=== PATIENT | female | born 1970 | race Caucasian/White ===

== ENCOUNTER 2016-05-02 06:40 | Inpatient (IN) | payer MEDICAID ==
[2016-05-02 06:41] VITALS: BMI 20.8
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
[2016-05-02 11:29] LABS: BASO # 0.1 K/uL (0.0-0.2); BASO % 0.6 % (0.0-2.0); EOS % 0.1 % (0.0-4.0); HEMATOCRIT 40.5 % (34.0-47.0); LYMPH # 2.8 K/uL (1.0-4.3); LYMPH % 24.1 % (20.0-40.0); MEAN CORPUSCULAR HEMOGLOBIN 29.7 pg (27.0-31.0); MEAN CORPUSCULAR HGB CONC 33.1 g/dL (33.0-37.0); MEAN PLATELET VOLUME 7.3 fl (7.2-11.7); MONO # 0.9 K/uL (0.0-0.8); MONO % 7.5 % (0.0-10.0); NEUT # 7.8 K/uL (1.8-7.0); NEUT % 67.7 % (50.0-75.0); RED CELL DISTRIBUTION WIDTH 13.3 % (11.5-14.5); WHITE BLOOD COUNT 11.5 K/uL (4.8-10.8)
[2016-05-02 11:34] LABS: MEAN CELL VOLUME 89.7 fl (81.0-99.0)
[2016-05-02 11:45] LABS: ALCOHOL SERUM < 10 mg/dl (0-10); BLOOD UREA NITROGEN 10 mg/dl (7-17); CALCIUM 9.4 mg/dL (8.4-10.2); CARBON DIOXIDE 26 mmol/L (22-30); CHLORIDE 103 mmol/L (98-107); GFR AFRICAN-AMERICAN > 60; GLUCOSE,RANDOM 99 mg/dL (65-105); POTASSIUM 3.2 MMOL/L (3.6-5.0); SODIUM 136 mmol/l (132-148)
[2016-05-02] MEDS ORDERED: Potassium Chloride 20 mEq ER Tab PO ONE ×2 (12:07→12:21)
[2016-05-02] MEDS ORDERED: DiphenhydrAMINE 50 mg/ml Inj IM PRN (20:57)
[2016-05-02] MEDS ORDERED: Alum-Mag Hydrox-Simethicone Susp (30 mL) PO PRN (20:57)
[2016-05-02] MEDS ORDERED: Magnesium Hydroxide Susp 30 ml UD PO PRN (20:57)
--- NOTE | 2016-05-03 08:04 | CARD ---
APPROVED REPORT EKG Measurement Heart [id number] <Conclusion> Normal sinus rhythm with sinus arrhythmia Prolonged QT Abnormal ECG
[2016-05-03 08:16] LABS: T4 9.42 ug/dl (5.5-11.0)
[2016-05-03 08:29] LABS: THYROID STIMULATING HORMONE 0.5 mIU/ML (0.46-4.68)
--- NOTE | 2016-05-03 10:02 | CP.PCM.CON ---
History of Present Illness - History of Present Illness History of Present Illness: Reason for Consult: per protocol HPI: 46 year old female with no past medical history, admitted for likely aggressive behavior. Patient seems very angry and is minimally compliant with interview. Does not have any complaints at this time. Per chart review, patient was admitted for schizoaffective disorder, bizarre behavior, and paranoid thoughts. ROS: per HPI, all other systems reviewed and negative by me PMH: denies PSH: denies FH: denies SH: Denies tobacco, ETOH, IVDU MEDS: as below and reviewed ALLERGIES: NKDA EXAM: Vitals stable and reviewed patient refused physical exam LABS as below and reviewed ASSESSMENT AND PLAN: 46 year old female with no past medical history, admitted for likely aggressive behavior. Patient seems very angry and is minimally compliant with interview. Does not have any complaints at this time. Per chart review, patient was admitted for schizoaffective disorder, bizarre behavior, and paranoid thoughts. Schizoaffective Disorder management per psychiatry team Past Patient History - Infectious Disease Hx of Infectious Diseases: None - Past Medical History & Family History Past Medical History?: Yes - Past Social History Smoking Status: Unknown If Ever Smoked - CARDIAC Hx Cardiac Disorders: No - PULMONARY Hx Asthma: Yes Hx Tuberculosis: No - NEUROLOGICAL Hx Neurological Disorder: No HX Cerebrovascular Accident: No Hx Seizures: No - HEENT Hx HEENT Problems: No - RENAL Hx Chronic Kidney Disease: No - ENDOCRINE/METABOLIC Hx Endocrine Disorders: No - HEMATOLOGICAL/ONCOLOGICAL Hx Blood Disorders: No Hx Cancer: No Hx Human Immunodeficiency Virus (HIV): No - INTEGUMENTARY Hx Dermatological Problems: No - MUSCULOSKELETAL/RHEUMATOLOGICAL Hx Musculoskeletal Disorders: No Hx Falls: No Hx Unsteady Gait: No - GASTROINTESTINAL Hx Gastrointestinal Disorders: No - GENITOURINARY/GYNECOLOGICAL Hx Genitourinary Disorders: No Hx Sexually Transmitted Disorders: No - PSYCHIATRIC Hx Sexual Abuse: No Hx Substance Use: No - SURGICAL HISTORY Hx Surgeries: Yes Hx Hysterectomy: Yes Hx Tubal Ligation: Yes - ANESTHESIA Hx Anesthesia: Yes Meds Allergies/Adverse Reactions: Allergies Allergy/AdvReac Type Severity Reaction Status Date / Time No Known Allergies Allergy Verified 07/15/15 13:29 - Medications Medications: Current Medications Acetaminophen (Tylenol 325mg Tab) 650 mg PO Q4 PRN PRN Reason: Pain, moderate (4-7) Al Hydrox/Mg Hydrox/Simethicone (Maalox Plus 30 Ml) 30 ml PO Q4 PRN PRN Reason: Dyspepsia Diphenhydramine HCl (Benadryl) 50 mg PO HS PRN PRN Reason: Sleep Diphenhydramine HCl (Benadryl) 50 mg IM Q6 PRN PRN Reason: Extrapyramidal S/S Unable PO Haloperidol (Haldol) 5 mg PO Q4 PRN PRN Reason: Agitation Haloperidol Lactate (Haldol) 5 mg IM Q4 PRN PRN Reason: Agitation, Unable to Take PO Lorazepam (Ativan) 2 mg PO Q4 PRN PRN Reason: Anxiety/Agitation Lorazepam (Ativan) 2 mg IM Q4 PRN PRN Reason: Anxiety/Agitation,Unable PO Magnesium Hydroxide (Milk Of Magnesia) 30 ml PO HS PRN PRN Reason: Constipation Risperidone (Risperdal M-Tab) 1 mg PO DAILY MICHELLE Results - Vital Signs Recent Vital Signs: Last Vital Signs Temp 98.1 F 05/02/16 19:44 Pulse 68 05/02/16 19:44 Resp 22 05/02/16 19:44 BP 101/60 05/02/16 19:44 Pulse Ox 100 05/02/16 18:00 - Labs Result Diagrams: 05/02/16 11:23 05/02/16 11:23 Labs: Laboratory Results - last 24 hr 05/03/16 06:30 Triglycerides 70 Cholesterol 202 H LDL Cholesterol Direct 95 HDL Cholesterol 77 H Thyroxine (T4) 9.42 TSH 3rd Generation 0.50
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
[2016-05-03] MEDS: Risperidone M tab 1 MG PO SCH (15:03)
[2016-05-04] MEDS: Risperidone M tab 1 MG PO SCH ×2 (08:55→09:01)
[2016-05-04 09:15] VITALS: BP 104/79; PULSE 120; RESP 20; TEMP 97.5
[2016-05-04 09:42] VITALS: O2SAT 99
[2016-05-04 14:16] LABS: BLOOD UREA NITROGEN 12 mg/dl (7-17); CALCIUM 9.4 mg/dL (8.4-10.2); CARBON DIOXIDE 24 mmol/L (22-30); CHLORIDE 103 mmol/L (98-107); GFR AFRICAN-AMERICAN > 60; GLUCOSE,RANDOM 118 mg/dL (65-105); POTASSIUM 4.2 MMOL/L (3.6-5.0); SODIUM 142 mmol/l (132-148)
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
--- NOTE | 2016-05-04 20:11 | PCM.PYCHPN ---
Psychiatric Progress Note - Psychiatric Progress Note Patient seen today, length of contact: chart was reviewed and case was discussed with team Patient Chief Complaint: was doing the work of Cornel, people dont understand, they were trying to rolled ham lacer me, reports that i dont know why i am here but cornel sent me, staff report that pt at times was making attempts to elope as such she was placed on 1 to 1. staff report pt is religiously preoccupied and is isolative in room. pt was seen by rn intake to day and there were concerns about potassium levels and ekg rhythm. rn intake requested that pt be transferred to er for evaluation. prior to transfer pt was agreeable to have echocardiogram, verbalized would not make attempt to run or elope . pt denied chest sob or palpitations Problems Identified/Issues Discussed: alteration in thought process alteration in self care potential alteration in safety alteration in electrolyte status alteration in cardiac rhythm Medical Problems: per chart Diagnostic Results: per psychiatric per medicine per nursing per director social per recreational therapy DSM 5 Symptoms Update: paranoia denominational pre occupation Medication Change: No Medical Record Reviewed: Yes Consults ordered or reviewed: cardiology Mental Status Examination - Cognitive Function Orientation: Person, Place Memory: Impaired Attention: Poor Concentration: Poor Association: Loose Fund of Knowledge: Poor Decription of patient's judgement and insights: impaired - Mood Mood: Other (angry) - Affect Affect: Broad - Speech Speech: Soft Additional comments: under productive - Formal Thought Process Formal Thought Process: Hallucinations, Delusions, Paranoia, Loosening of associations, Flight of ideas Psychotic Thoughts and Behaviors: paranoia - Suicidal Ideation Suicidal Ideation: No - Homicidal Ideation Homicidal Ideation: No Goal/Treatment Plan - Goal/Treatment Plan Need for Continued Stay: Remain at risks for inpatient hospitalization, Discharge may exacerbated symptoms, Failed transitioning, Severe functional impairment Progress Toward Problem(s) and Goals/Treatment Plan: pt to be transferred to er for evaluation by rn intake pt off of unit via wheelchair with one to one for echocardiogram then to be transferred to er primary nursing staff endorced pt to er medications for psychiatry will remain the same unless clinically indicated for change if pt is to be transferred from er to medsurg or telemetry pt will be seen by psych once consulted pt off of unit without incident If changed, why: pt transferred to er for evaluation of K+/ekg rhythm - Smoking Cessation Smoking Cessation Initiated: No Reason for not providing: pt deferred
--- NOTE | 2016-05-05 07:57 | CARD ---
APPROVED REPORT EXAM: Two-dimensional and M-mode echocardiogram with Doppler and color Doppler. Other Information Quality : GoodRhythm : Tachycardia INDICATION Abnormal EKG/Arrhythmia 2D DIMENSIONS RVDd2.45 (2.9-3.5cm)Left Atrium (2D)1.97 (1.6-4.0cm) IVSd0.94 (0.7-1.1cm)Aortic Root (2D)2.77 (2.0-3.7cm) LVDd3.85 (3.9-5.9cm)PWd0.81 (0.7-1.1cm) IVSs1.37 (0.8-1.2cm)LVDs2.67 (2.5-4.0cm) FS (%) 30.5 %PWs0.95 (0.8-1.2cm) LVEF (%)58.0 (>50%) M-Mode DIMENSIONS Left Atrium (MM)2.56 (2.5-4.0cm)IVSd0.68 (0.7-1.1cm) Aortic Root2.47 (2.2-3.7cm)LVDd3.53 (4.0-5.6cm) Aortic Cusp Exc.1.91 (1.5-2.0cm)PWd0.68 (0.7-1.1cm) MV EPSS0.2 (<0.5cm)IVSs1.24 cm FS (%) 56 %LVDs1.56 (2.0-3.8cm) PWs1.15 cmLVEF (%)75 (>50%) Mitral Valve E/A ratio0.0 TDI Medial E' Peak V9.13cm/sE/Lateral E'0.0E/Medial E'0.0 LEFT VENTRICLE The left ventricle is normal size. There is normal left ventricular wall thickness. Left ventricle systolic function is normal. The Ejection Fraction is 65-70%. There is normal LV segmental wall motion. Transmitral Doppler flow pattern is Grade I-abnormal relaxation pattern. RIGHT VENTRICLE The right ventricle is normal size. There is normal right ventricular wall thickness. The right ventricular systolic function is normal. ATRIA The left atrium size is normal. The right atrium size is normal. AORTIC VALVE The aortic valve is normal in structure and function. No aortic regurgitation is present. There is no aortic valvular stenosis. MITRAL VALVE The mitral valve is normal in structure and function. There is no evidence of mitral valve prolapse. There is no mitral valve stenosis. There is no mitral valve regurgitation noted. TRICUSPID VALVE The tricuspid valve is normal in structure and function. There is no tricuspid valve regurgitation noted. PULMONIC VALVE The pulmonary valve is normal in structure and function. There is no pulmonic valvular regurgitation. GREAT VESSELS The aortic root is normal in size. The IVC is normal in size and collapses >50% with inspiration. PERICARDIAL EFFUSION The pericardium appears normal. <Conclusion> The left ventricle is normal size. There is normal left ventricular wall thickness. There is normal LV segmental wall motion. Left ventricle systolic function is normal. The Ejection Fraction is 65-70%. Transmitral Doppler flow pattern is Grade I-abnormal relaxation pattern.
== END 2016-05-04 16:00 | disposition short-term general hospital (02) | DRG 430 ==
LOC: H.ER 06:40 → H.ERHOLD 12:40 → H.PSYCH 19:41
PROVIDERS: ADMIT Psychiatry & Neurology Psychiatry; ATTEND Psychiatry & Neurology Psychiatry
PROC: GZ51ZZZ Individual Psychotherapy, Behavioral (ICD-10-PCS; principal; 2016-05-02)
DX: F25.9 Schizoaffective disorder, unspecified (principal); E87.6 Hypokalemia; J45.909 Unspecified asthma, uncomplicated; Z90.710 Acquired absence of both cervix and uterus; Z98.51 Tubal ligation status

== ENCOUNTER 2016-05-04 14:42 | Observation (INO) | payer MEDICAID ==
[2016-05-04 14:42] VITALS: BMI 20.8
--- NOTE | 2016-05-04 15:07 | CP.PCM.HP ---
History of Present Illness - History of Present Illness History of Present Illness: CC: transferred from [facility] / cardiology recommendation HPI: 46 year old female with no past medical history, admitted to [facility] a few days ago for likely aggressive behavior. Per chart review, patient was admitted for schizoaffective disorder, bizarre behavior, and paranoid thoughts. During evaluation in psych, patient was seen by cardiology, was hypokalemic 2 days ago and EKG showed QT prolongation. ECHO was ordered. Patient to be d/c to ER for admission for observation on telemetry, to monitor for arrhythmia. Repeat K showed 4.2. ROS: per HPI, all other systems reviewed and negative by me PMH: denies PSH: denies FH: denies SH: Denies tobacco, ETOH, IVDU MEDS: as below and reviewed ALLERGIES: NKDA EXAM: Vitals stable and reviewed Temp Pulse Resp BP Pulse Ox 98.1 F 83 18 129/87 100 05/04/16 14:47 05/04/16 14:47 05/04/16 14:47 05/04/16 14:47 05/04/16 14:47 Constitutional- cooperative, awake, alert. Head- NCAT, PERRL Eye- PERRL, normal accommodation ENT- normal exam, MMM. Neck- normal inspection, supple, no JVD Respiratory- decreased BS, no wheezes rales rhonchi Cardiovascular- RRR, +S1, +S2 no MRG GI/Abdominal- normal bowel sounds, soft Extremities Exam- normal capillary refill, normal inspection Neurological Exam- alert, oriented Skin- warm and dry Psych - normal mood, affect appropriate LABS for today reviewed under other account Allergies No Known Allergies Allergy (Verified 05/04/16 14:46) Height & Weight Height 5 ft 1 in Weight 130 lb Start Date/Time Active Medications 05/05/16 09:00 Enoxaparin [Lovenox] 40 mg SC DAILY ASSESSMENT AND PLAN: 46 year old female with no past medical history, admitted to [facility] a few days ago for likely aggressive behavior. Per chart review, patient was admitted for schizoaffective disorder, bizarre behavior, and paranoid thoughts. During evaluation in psych, patient was seen by cardiology, was hypokalemic 2 days ago and EKG showed QT prolongation. ECHO was ordered. Patient to be d/c to ER for admission for observation on telemetry, to monitor for arrhythmia. Repeat K showed 4.2. QT prolongation and Hypokalemia repeat K 4.[address] Polo monitor on tele overnight pt is asymptomatic Schizoaffective Disorder management per psychiatry team 1:1 as necessary Present on Admission - Present on Admission Any Indicators Present on Admission: No Past Patient History - Infectious Disease Hx of Infectious Diseases: None - Past Medical History & Family History Past Medical History?: Yes - Past Social History Smoking Status: Unknown If Ever Smoked - CARDIAC Hx Hypertension: No - PULMONARY Hx Asthma: Yes (as a child) - NEUROLOGICAL Hx Migraine: Yes Hx Seizures: No - HEENT Hx HEENT Problems: No - RENAL Hx Chronic Kidney Disease: No - ENDOCRINE/METABOLIC Hx Endocrine Disorders: No - HEMATOLOGICAL/ONCOLOGICAL Hx Human Immunodeficiency Virus (HIV): No - INTEGUMENTARY Hx Dermatological Problems: No - MUSCULOSKELETAL/RHEUMATOLOGICAL Hx Musculoskeletal Disorders: No Hx Falls: No Hx Unsteady Gait: No - GASTROINTESTINAL Hx Gastrointestinal Disorders: No - GENITOURINARY/GYNECOLOGICAL Hx Sexually Transmitted Disorders: No - PSYCHIATRIC Hx Schizophrenia: Yes Hx Substance Use: No - SURGICAL HISTORY Hx Surgeries: Yes Hx Hysterectomy: Yes Hx Tubal Ligation: Yes - ANESTHESIA Hx Anesthesia: Yes Meds Allergies/Adverse Reactions: Allergies Allergy/AdvReac Type Severity Reaction Status Date / Time No Known Allergies Allergy Verified 05/04/16 14:46 Results - Vital Signs Recent Vital Signs: Last Vital Signs Temp 98.1 F 05/04/16 14:47 Pulse 83 05/04/16 14:47 Resp 18 05/04/16 14:47 BP 129/87 05/04/16 14:47 Pulse Ox 100 05/04/16 14:47
--- NOTE | 2016-05-04 15:57 | ED PDOC ---
HPI: General Adult Time Seen by Provider: 05/04/16 15:11 Chief Complaint (Nursing): Medical Clearance Chief Complaint (Provider): Medical Clearance History Per: Patient History/Exam Limitations: no limitations Onset/Duration Of Symptoms: Days (2x) Current Symptoms Are (Timing): Still Present Severity: Moderate Additional Complaint(s): 46 year old female patient was sent from psych to ED for medical evaluation for her abnormal electrolyte and EKG changes. She denies having any medical complaint including shortness of breath, chest pain, and a headache. She also denies having SI and HI. PMD: Patient does not recall. Past Medical History Reviewed: Historical Data, Nursing Documentation, Vital Signs Vital Signs: Last Vital Signs Temp 97.2 F L 05/04/16 16:51 Pulse 96 H 05/04/16 17:16 Resp 18 05/04/16 17:16 BP 134/83 05/04/16 16:51 Pulse Ox 97 05/04/16 16:51 - Medical History PMH: Anxiety, Asthma (as a child), Migraine, Schizophrenia Denies: Diabetes, Hepatitis, HIV, HTN, Chronic Kidney Disease, Seizures, Sexually Transmitted Disease - Family History Family History: States: Unknown Family Hx - Social History Alcohol: Social Drugs: Denies - Home Medications Home Medications: Ambulatory Orders Medication Instructions Recorded Risperidone [Risperdal M-TAB] 1 mg PO DAILY 05/04/16 - Allergies Allergies/Adverse Reactions: Allergies Allergy/AdvReac Type Severity Reaction Status Date / Time No Known Allergies Allergy Verified 05/04/16 14:46 Review of Systems ROS Statement: Except As Marked, All Systems Reviewed And Found Negative Cardiovascular: Negative for: Chest Pain Respiratory: Negative for: Shortness of Breath Neurological: Negative for: Headache Physical Exam - Reviewed Nursing Documentation Reviewed: Yes Vital Signs Reviewed: Yes - Physical Exam Appears: Positive for: Well, Non-toxic, No Acute Distress Head Exam: Positive for: ATRAUMATIC, NORMOCEPHALIC Skin: Positive for: Normal Color, Warm, Dry Eye Exam: Positive for: Normal appearance Cardiovascular/Chest: Positive for: Regular Rate, Rhythm, Chest Non Tender Respiratory: Positive for: Normal Breath Sounds. Negative for: Respiratory Distress Extremity: Positive for: Normal ROM. Negative for: Tenderness Neurologic/Psych: Positive for: Alert, Oriented (3x) - ECG O2 Sat by Pulse Oximetry: 100 (RA) Pulse Ox Interpretation: Normal Medical Decision Making Medical Decision Makin:11 Initial impression: 46 year old female patient has an abnormal electrolytes and EKG changes. Initial plan: 15:15 Discussed case with Rica Rico DO. Patient will be admitted to telemetry under Rica Rico DO. Discussed results and plan to admit with patient who expresses understanding. All questions answered and there is agreement with the plan. Scribe Attestation: Documented by Lisa Agosto, acting as a scribe for Juan Ortega MD. Provider Scribe Attestation: All medical record entries made by the Scribe were at my direction and personally dictated by me. I have reviewed the chart and agree that the record accurately reflects my personal performance of the history, physical exam, medical decision making, and the department course for this patient. I have also personally directed, reviewed, and agree with the discharge instructions and disposition. Disposition - Clinical Impression Clinical Impression: Acute electrocardiogram changes, Hypokalemia - Disposition Disposition Time: 15:15 Condition: FAIR
--- NOTE | 2016-05-05 08:18 | CARD ---
APPROVED REPORT EKG Measurement Heart [id number] <Conclusion> Sinus rhythm with sinus arrhythmia with short MT Otherwise normal ECG
[2016-05-05] MEDS ORDERED: Enoxaparin 40 mg Syringe SC SCH (09:00)
[2016-05-05 10:51] LABS: BLOOD UREA NITROGEN 10 mg/dl (7-17); CALCIUM 9.1 mg/dL (8.4-10.2); CARBON DIOXIDE 28 mmol/L (22-30); CHLORIDE 100 mmol/L (98-107); GFR AFRICAN-AMERICAN > 60; GLUCOSE,RANDOM 106 mg/dL (65-105); POTASSIUM 3.8 MMOL/L (3.6-5.0); SODIUM 140 mmol/l (132-148)
--- NOTE | 2016-05-05 12:08 | CP.PCM.PN ---
Subjective - Date & Time of Evaluation Date of Evaluation: 05/05/16 Time of Evaluation: 11:57 - Subjective Subjective: Patient seen and examined, she is very agitated, was placed on 4 point leather restraints temporarily this morning for highly aggressive behavior that was a threat to self and staff. As per psych, patient is not competent. Patient was sedated with multiple doses of ativan by hospitalist team with very little improvement. Patient was eventually changed over to soft restraints. Repeat EKG showed normal QTc interval, BMP also showed K 3.8. Patient to be seen by [facility] for involuntary admission to psych. Patient discussed with Cardiology Dr. Polo, patient is clear for discharge from cardiology standpoint. Patient will be further evaluated with UA and CXR for involuntary screen [facility]. Patient is HD stable, no acute distress. Note: patient urine POC neg 05/02/16. vitals Temp Pulse Resp BP Pulse Ox 98.4 F 71 20 127/79 97 05/05/16 08:28 05/05/16 08:28 05/05/16 08:28 05/05/16 08:28 05/05/16 08:28 patient refused physical exam Gen: WDWN, aggressive, agitated, awake, alert HEENT: NCAT, PERRL, no erythema gross hearing intact Heart: refused Lung: refused Abd: refused Ext: warm, strength in all 4 extremities as demonstrated when fighting against restraints Neuro: awake alert Skin: Warm, Dry, no rash Psych: aggressive, agitated 05/05/16 10:25 BMP K 3.8 ASSESSMENT AND PLAN: 46 year old female with no past medical history, admitted to [facility] a few days ago for likely aggressive behavior. Per chart review, patient was admitted for schizoaffective disorder, bizarre behavior, and paranoid thoughts. During evaluation in psych, patient was seen by cardiology, was hypokalemic on admission and EKG showed QT prolongation. ECHO was ordered. Patient was placed on OBS on telemetry, to monitor for arrhythmia. Repeat K showed 4.2. Today K is 3.8, repeat EKG no QT prolongation with mild NM shortening. This morning patient was very agitated, was placed on 4 point leather restraints temporarily this morning for highly aggressive behavior that was a threat to self and staff. As per psych, patient is not competent. Patient was sedated with multiple doses of ativan by hospitalist team with very little improvement. Patient was eventually changed over to soft restraints. Repeat EKG showed normal QTc interval, BMP also showed K 3.8. Patient to be seen by [facility] for involuntary admission to psych. Patient discussed with Cardiology Dr. Polo, patient is clear for discharge from cardiology standpoint. Patient will be further evaluated with UA and CXR for involuntary screen [facility]. Patient is HD stable, no acute distress. Note: patient urine POC neg 05/02/16. QT prolongation and Hypokalemia Pt is asymptomatic Repeat EKG showed normal QTc interval, BMP also showed K 3.8. UA AND CXR for [facility] screen Patient discussed with Cardiology Dr. Polo, patient is clear for discharge from cardiology standpoint. Patient is HD stable, no acute distress. Note: patient urine POC neg . Schizoaffective Disorder As per psych, patient is not competent. 1:1 as necessary This morning patient was very agitated 4 point leather restraints temporarily this morning for highly aggressive behavior that was a threat to self and staff. Eventually changed to soft restraints this morning, before noon. Patient was sedated with multiple doses of ativan by hospitalist team with very little improvement. Patient to be seen by [facility] for involuntary admission to [facility]. Patient will be further evaluated with UA and CXR for involuntary screen [facility]. Patient is HD stable, no acute distress. Note: patient urine POC neg . Objective - Vital Signs/Intake and Output Vital Signs (last 24 hours): Temp Pulse Resp BP Pulse Ox 98.4 F 71 20 127/79 97 05/05/16 08:28 05/05/16 08:28 05/05/16 08:28 05/05/16 08:28 05/05/16 08:28 - Medications Medications: Current Medications Acetaminophen (Tylenol 325mg Tab) 650 mg PO Q6 PRN PRN Reason: Headache Last Admin: 05/05/16 06:44 Dose: 650 mg Enoxaparin Sodium (Lovenox) 40 mg SC DAILY MICHELLE PRN Reason: Protocol Last Admin: 05/05/16 09:00 Dose: Not Given - Labs Labs: 05/05/16 10:25
--- NOTE | 2016-05-05 12:38 | PCM.PSYCH ---
Initial Psychiatric Evaluation - Initial Psychiatric Evaluation Chief Complaint (in patient's own words): pt was transferred to -telemetry on 05/04/2016 2nd to hypokalemia and cardiac rhythm change. hypokalemia and rhythm changes have resolved. potassium 2016 is 3.8 and ekg done on 05/05/2016 is normal sinus rhythm. pt was demanding to leave and did not respond to verbal redirection by staff, continued to be agitated and demanding to leave. A code susan was called and pt has placed in 4 point restraints later being transitioned to soft restraints. clinically pt required to receive lorazepam for several doses. clinically pt required to be on 1 to 1 for safety. Patient's Reaction to Hospitalization: does not believe she has any medical nor psychiatric issues, does not believe she needs any medication, is refusing medical treatment, does not believe she needs to be in any hospital History of Present Illness and Precipitating Events: pt was admitted to [facility] via the er at [facility] for reported agitation and paranoia with gnosticist preoccupation. once on 3 pt required to on 1 to 1 for safety as she was an elopement risk. pt labs on [facility] revealed a potassium of 2.7 and an ekg revealed an rhythm abnormalities and cardiac consult was obtained. pt was transferred to er at [facility] for medical evaluation. was deemed by er md that pt required telemetry and pt was admitted to /telemetry. once on 4n /telemetry pt was refusing medical treatment, was demanding to leave the hospital and became agitated. pt was maintained on 1 to 1. a code kristofer was called, pt was not responding to verbal redirection and subsequently required administration of lorazepam of several doses totally 6mg over a several hour period. pt was assessed on an on going basis by staff per protocol and per clinical status. pt was later able to able to have 4pt leather restraints and be transitioned to soft restraints. pt was maintained on 1 to 1 and was able to contract for safety and to have soft restraints removed. pt was seen at bedside by this advertising copy writer. pt was spoken to in [place]. pt was oriented to person only. continued to be religiously preoccupied. she did not believe she needed to be in the hospital, was deferring both medical and psychiatric treatment. pt did not wish to be voluntarily admitted to [facility] for for psychiatric treatment. Pt is confused, has poor insight and judgment. Case was discussed with attending md. It was determined that clinically it is unsafe for pt to be discharged at this time. it was deemed that a screening for involuntary commitment. staff discussed case with attending md that pt is medically stable. an order was written for screening for involuntary commitment. Current Medications: Active Medications Generic Name Dose Route Start Last Admin Trade Name Freq PRN Reason Stop Dose Admin Acetaminophen 650 mg 05/05/16 06:35 05/05/16 06:44 Tylenol 325mg Tab PO 650 mg Q6 PRN Administration Headache Enoxaparin Sodium 40 mg 05/05/16 09:00 05/05/16 09:00 Lovenox SC Not Given DAILY MICHELLE Protocol Past Psychiatric History - Past Psychiatric History Prior Professional Help: history of schizophrenia with non adherence w/ gnosticist preoccupation Prior Psychiatric Treatment: defers details Nature of Treatment: inpt outpatient History of ETOH/Drug Use: denies History of Family Illness: deferred Pertinent Medical Hx (Current Medical&Sleep Prob, Allergies): Allergies Allergy/AdvReac Type Severity Reaction Status Date / Time No Known Allergies Allergy Verified 05/04/16 14:46 Risperidone [Risperdal M-TAB] 1 mg PO DAILY 05/04/16 Review of Systems - Psychiatric Psychiatric: Abnormal Sleep Pattern, Anxiety, Behavioral Changes, Confusion, Irritability, Paranoia Mental Status Examination - Personal Presentation Personal Presentation: Looks stated age - Affect Additional comments: labile irritable - Motor Activity Motor Activity: Psychomotor Agitation - Reliability in Providing Information Reliability in Providing Information: Poor, due to alteration in thoughts - Speech Speech: Disorganized, Incoherent - Mood Additional comments: labile - Formal Thought Process Formal Thought Process: Delusions, Paranoia Additional comments: gnosticist preoccupation - Hallucinations/Delusions Delusions: Persecution - Cognitive Functions Sensorium: Other Attention/Concentration: Easily distracted Judgement: Imparied, as evidence by: Poor judgement, Imparied, as evidence by: Lack of insight into illness, Intact, as evidence by: Good judgement, Intact, as evidence by: Insight regarding need for hospitalization Memory: Remote impaired as evidenced by: Other - Risk Risk: Elopement - Strength & Assets Inventory Strength & Assets Inventory: Other - Limitations Limitations: Other Additional comments: impaired insight and judgment poor , has had multiple occasions where she did not follow up DSM 5 DX - DSM 5 DSM 5 Diagnosis: schizophrenia Paranoid Type Hx of hypokalemia: corrected during inpt Hx of abnormal arrythmia: corrected during inpt - Recommended/Plan of Treatment Treatment Recommendations and Plan of Treatment: case discussed with attending Md. Dr. Benítez , pt is unsafe at this time to be discharge due to poor insight and judgment. She is refusing multiple medications, has required the application of both leather restraints and soft restraints (separately) and multiple doses of lorazepam and benadryl. pt has needed to be on a one to one for safety. case was discussed with carlos from [facility] information was fax[place] to [facility] [place] nursing staff. pt will evaluated for involuntary commitment. Projected ELOS: unknown Prognosis: guarded Discharge Plan and Discharge Criteria: pt to be evaluated for involuntary commitment. - Smoking Cessation Smoking Cessation Initiated: No Reason for not providing: deferred
[2016-05-05 14:45] LABS: RBC URINE 1 /hpf (0-3); URINE BACTERIA RARE (<OCC); URINE BILIRUBIN NEGATIVE (NEGATIVE); URINE BLOOD NEGATIVE (NEGATIVE); URINE COLOR YELLOW (YELLOW); URINE GLUCOSE (UA) NEG (Normal); URINE KETONE 80 mg/dL (NEGATIVE); URINE LEUKOCYTE ESTERASE LARGE Leu/uL (Negative); URINE PROTEIN 30 mg/dL (NEGATIVE); URINE UROBILINOGEN 0.2-1.0 mg/dL (0.2-1.0); WBC URINE 9 /hpf (0-5)
[2016-05-05] MEDS ORDERED: DiphenhydrAMINE 50 mg/ml Inj IM STA (15:19)
--- NOTE | 2016-05-05 15:23 | CON ---
DATE: 05/05/2016 REASON FOR CONSULTATION: Abnormal EKG and hypokalemia. HISTORY OF PRESENT ILLNESS: The patient is a 46-year-old female who has a history of schizo affective disorder who was admitted because of aggressive behavior and paranoid ideation. The patien harpreet was evaluated by me yesterday and was referred to the Emergency Room because of hypokalemia and pro longed QT interval to be admitted to telemetry. The patient denies any chest pain or shortness of br eath at this time. SOCIAL HISTORY: The patient lives with her son. She denies drug abuse. REVIEW OF SYSTEMS: No nausea, vomiting, no fever or chills. MEDICATIONS: Lovenox 40 mg subcutaneous daily, Tylenol 650 mg q. 6 hours p.r.n. The patient did rec eive Ativan 2 mg IM on stat dose basis. PHYSICAL EXAMINATION: GENERAL: The patient is a middle-aged female who does not appear to be in any distress. VITAL SIGNS: Blood pressure 118/84, heart rate 75, temperature 97.7, respirations 18. HEENT: Normocephalic. NECK: No JVD. CHEST: Clear. HEART: S1, S2 regular. ABDOMEN: Soft. EXTREMITIES: No edema. LABORATORY DATA: Repeat EKG yesterday revealed sinus arrhythmia and short NH interval. Heart rate 8 7, otherwise normal EKG. Echocardiographic study revealed ejection fraction in the range of 65-70% w ith normal wall size and wall motion and grade I abnormal relaxation pattern. Today's chemistry reve aled a potassium 3.8, which is an improvement from 3.2 on 05/02. Magnesium was 9.1. I was informed by Dr. Rico that the urine test was negative. ASSESSMENT: 1. Improved hypokalemia and improved prolonged QT interval on EKG. 2. Schizoaffective disorder with paranoid ideation. RECOMMENDATIONS: The case was discussed with Dr. Rico, and the patient can be transferred to [facility] psych unit from the cardiac point of view. Tiburcio Polo MD cc: [id number] TT: 05/05/2016 15:23:16 Confirmation # [id number] Dictation # [id number]
[2016-05-05 15:34] VITALS: RESP 20
--- NOTE | 2016-05-05 15:35 | RAD ---
PROCEDURE: CHEST RADIOGRAPH, 1 VIEW HISTORY: involuntary screening COMPARISON: None available. FINDINGS: LUNGS: Clear. PLEURA: No pneumothorax or pleural fluid seen. CARDIOVASCULAR: Normal. OSSEOUS STRUCTURES: No significant abnormalities. VISUALIZED UPPER ABDOMEN: Normal. OTHER FINDINGS: None. IMPRESSION: No active disease.
--- NOTE | 2016-05-05 23:31 | CP.PCM.DIS ---
Provider - Provider Date of Admission: 05/04/16 15:08 Attending physician: Rica Rico DO Primary care physician: Dr Rivas Consults: Dr Polo security project manager Dr Irvin Psychiatrist Time Spent in preparation of Discharge (in minutes): 25 Hospital Course - Lab Results Lab Results: Most Recent Lab Values Sodium 140 mmol/l (132-148) 05/05/16 10:25 Potassium 3.8 MMOL/L (3.6-5.0) 05/05/16 10:25 Chloride 100 mmol/L (98-107) 05/05/16 10:25 Carbon Dioxide 28 mmol/L (22-30) 05/05/16 10:25 Anion Gap 16 (10-20) 05/05/16 10:25 BUN 10 mg/dl (7-17) 05/05/16 10:25 Creatinine 0.5 mg/dL (0.7-1.2) L 05/05/16 10:25 Est GFR ( Amer) > 60 05/05/16 10:25 Est GFR (Non-Af Amer) > 60 05/05/16 10:25 Random Glucose 106 mg/dL (65-105) H 05/05/16 10:25 Calcium 9.1 mg/dL (8.4-10.2) 05/05/16 10:25 Urine Color Yellow (YELLOW) 05/05/16 14:09 Urine Clarity Cloudy (Clear) 05/05/16 14:09 Urine pH 6.0 (5.0-8.0) 05/05/16 14:09 Ur Specific Doucette 1.025 (1.003-1.030) 05/05/16 14:09 Urine Protein 30 mg/dL (NEGATIVE) 05/05/16 14:09 Urine Glucose (UA) Neg mg/dL (Normal) 05/05/16 14:09 Urine Ketones 80 mg/dL (NEGATIVE) 05/05/16 14:09 Urine Blood Negative (NEGATIVE) 05/05/16 14:09 Urine Nitrate Negative (NEGATIVE) 05/05/16 14:09 Urine Bilirubin Negative (NEGATIVE) 05/05/16 14:09 Urine Urobilinogen 0.2-1.0 mg/dL (0.2-1.0) 05/05/16 14:09 Ur Leukocyte Esterase Large Tania/uL (Negative) 05/05/16 14:09 Urine RBC (Auto) 1 /hpf (0-3) 05/05/16 14:09 Urine Microscopic WBC 9 /hpf (0-5) H 05/05/16 14:09 Ur Squamous Epith Cells 1 /hpf (0-5) 05/05/16 14:09 Urine Bacteria Rare (<OCC) 05/05/16 14:09 - Hospital Course Hospital Course: 46 year old female with no past medical history, admitted to psych on 05/02/16 for likely aggressive behavior. Per chart review, patient was admitted for schizoaffective disorder, bizarre behavior, and paranoid thoughts.During evaluation in psych, patient was seen by cardiology, was hypokalemic 2 days ago and EKG showed QT prolongation. She was transferred to the telemetry unit on for cardiac monitoring. On 05/05/16 she was very agitated, was placed on 4 point leather restraints temporarily for highly aggressive behavior that was a threat to self and staff. As per psych, patient was not competent. Patient was sedated with multiple doses of ativan by hospitalist team with very little improvement. Patient was eventually changed over to soft restraints. Repeat EKG showed normal QTc interval, BMP also showed K 3.8. Patient discussed with Cardiology Dr. Polo, patient is clear for discharge from cardiology standpoint. Patient is HD stable, no acute distress. Note: patient urine POC neg 05/02/16. - Date & Time of H&P Date of H&P: 05/04/16 Time of H&P: 15:07 Discharge Exam - Head Exam Head Exam: ATRAUMATIC, NORMOCEPHALIC - Eye Exam Eye Exam: EOMI, Normal appearance - ENT Exam ENT Exam: Mucous Membranes Moist, Normal Exam, Normal External Ear Exam, Normal Oropharynx - Neck Exam Neck exam: Normal Inspection - Respiratory Exam Respiratory Exam: Clear to PA & Lateral. absent: Rales, Wheezes - Cardiovascular Exam Cardiovascular Exam: REGULAR RHYTHM, RRR, +S1, +S2 - GI/Abdominal Exam GI & Abdominal Exam: Normal Bowel Sounds, Soft - Rectal Exam Rectal Exam: Deferred - Extremities Exam Extremities exam: normal inspection - Back Exam Back exam: NORMAL INSPECTION - Neurological Exam Neurological exam: Alert, CN II-XII Intact, Reflexes Normal - Psychiatric Exam Psychiatric exam: Normal Mood - Skin Skin Exam: Intact, Normal Color, Warm Discharge Plan - Discharge Medications Prescriptions: Enoxaparin [Lovenox] 40 mg SC DAILY #7 syr Acetaminophen [Tylenol 325mg tab] 650 mg PO Q6 PRN #30 tab PRN Reason: Headache - Follow Up Plan Condition: STABLE Disposition: DISCHARGE TO PSYCH HOSPITAL Instructions: Hypokalemia (DC), Hypokalemia (GEN) Additional Instructions: Patient Discharged and to be transferred to [facility] as an involuntary transfer for Psychiatric Inpatient management.
[2016-05-06 01:39] VITALS: BP 105/61; PULSE 78; TEMP 97.7; O2SAT 97
--- NOTE | 2016-05-07 08:09 | CARD ---
APPROVED REPORT EKG Measurement Heart [id number] MT [id number] <Conclusion> Sinus rhythm with short MT Abnormal ECG
== END 2016-05-06 01:00 ==
LOC: H.ER 14:42 → H.ERHOLD 15:08 → H.TEL 16:32
PROVIDERS: ADMIT Student in an Organized Health Care Education/Training Program; ATTEND Student in an Organized Health Care Education/Training Program
DX: I45.81 Long QT syndrome (principal); Z78.1 Physical restraint status; G43.909 Migraine, unspecified, not intractable, without status migrainosus; F25.8 Other schizoaffective disorders

== ENCOUNTER 2017-02-05 19:57 | Emergency (ER) | payer SELFPAY ==
[2017-02-05 19:57] VITALS: BMI 20.8
--- NOTE | 2017-02-05 20:48 | ED PDOC ---
HPI: Psych/Substance Abuse Time Seen by Provider: 02/05/17 20:15 Chief Complaint (Nursing): Psychiatric Evaluation Chief Complaint (Provider): Visual Hallucinations History Per: Patient History/Exam Limitations: no limitations Current Symptoms Are (Timing): Still Present Suicide/Self Injury Attempted (Context): None Modifying Factor(s): None Severity: None Additional Complaint(s): 46 year old female with a past medical history of schizophrenia and bipolar disorder is brought into the ED by her son for visual hallucinations. As per son, the patient has not been taking her risperidone as prescribed her doctor. He further states that the patient has been accusing him of being a demon. Patient is very upset in the ER and states that she does not want to give blood as she believes it will be used for other purposes. PMD: Jim Rdz Past Medical History Reviewed: Historical Data, Nursing Documentation, Vital Signs Vital Signs: Last Vital Signs Temp 97.9 F 02/05/17 19:59 Pulse 102 H 02/05/17 19:59 Resp 17 02/05/17 19:59 BP 133/85 02/05/17 19:59 Pulse Ox 98 02/05/17 19:59 - Medical History PMH: Anxiety, Asthma (as a child), Bipolar Disorder, Migraine, Schizophrenia Denies: Diabetes, Hepatitis, HIV, HTN, Chronic Kidney Disease, Seizures, Sexually Transmitted Disease - Surgical History Surgical History: No Surg Hx - Family History Family History: States: Unknown Family Hx - Living Arrangements Living Arrangements: With Family - Home Medications Home Medications: Ambulatory Orders Medication Instructions Recorded Risperidone [Risperdal M-TAB] 1 mg PO DAILY 05/04/16 Acetaminophen [Tylenol 325mg tab] 650 mg PO Q6 PRN #30 tab 05/05/16 Enoxaparin [Lovenox] 40 mg SC DAILY #7 syr 05/05/16 - Allergies Allergies/Adverse Reactions: Allergies Allergy/AdvReac Type Severity Reaction Status Date / Time No Known Allergies Allergy Verified 02/05/17 20:03 Review of Systems ROS Statement: Except As Marked, All Systems Reviewed And Found Negative Psych: Positive for: Other (visual hallucinations) Physical Exam - Reviewed Nursing Documentation Reviewed: Yes Vital Signs Reviewed: Yes - Physical Exam Appears: Positive for: Non-toxic, No Acute Distress Head Exam: Positive for: ATRAUMATIC, NORMAL INSPECTION, NORMOCEPHALIC Skin: Positive for: Normal Color, Warm, Dry. Negative for: Rash Eye Exam: Positive for: Normal appearance, EOMI, PERRL. Negative for: Nystagmus ENT: Positive for: Normal ENT Inspection. Negative for: Nasal Congestion, Tonsillar Exudate, Tonsillar Swelling Neck: Positive for: Normal, Painless ROM, Supple Cardiovascular/Chest: Positive for: Regular Rate, Rhythm, Chest Non Tender. Negative for: Tachycardia Respiratory: Positive for: Normal Breath Sounds. Negative for: Wheezing, Respiratory Distress Gastrointestinal/Abdominal: Positive for: Normal Exam, Bowel Sounds, Soft. Negative for: Tenderness, Guarding Back: Positive for: Normal Inspection. Negative for: L CVA Tenderness, R CVA Tenderness Extremity: Positive for: Normal ROM. Negative for: Tenderness, Deformity, Swelling Neurologic/Psych: Positive for: Alert, Oriented - Laboratory Results Result Diagrams: 02/05/17 21:10 02/05/17 21:10 - ECG O2 Sat by Pulse Oximetry: 98 (RA) Pulse Ox Interpretation: Normal Medical Decision Making Medical Decision Makin Initial Impression 46 y/o female presenting with visual hallucination Initial Plan: * EKG * Acetaminophen * Alcohol Serum * CMP * Drug Screen * Salicylate * Crisis EVAL * CBC * CXR * 1:1 Observation CONT * Urinalysis * Reevaluation Documented by Roseline Ramon acting as a scribe for Bhaskar Bravo PA-C. All medical record entries made by the Scribe were at my direction and personally dictated by me. I have reviewed the chart and agree that the record accurately reflects my personal performance of the history, physical exam, medical decision making, and the department course for this patient. I have also personally directed, reviewed, and agree with the discharge instructions and disposition. Disposition - Clinical Impression Clinical Impression: Schizophrenia - Patient ED Disposition Is Patient to be Admitted: Transfer of Care - Disposition Disposition: Transfer of Care Disposition Time: 23:53 Condition: FAIR Forms: [facility] (Eth[place]ian) Patient Signed Over To: Hoda Nichols Handoff Comments: [facility]ENDING [facility]
[2017-02-05 21:21] LABS: BASO % 0.3 % (0.0-2.0); EOS % 0.2 % (0.0-4.0); HEMATOCRIT 41.6 % (34.0-47.0); LYMPH # 1.9 K/uL (1.0-4.3); LYMPH % 21.1 % (20.0-40.0); MEAN CELL VOLUME 90.7 fl (81.0-99.0); MEAN CORPUSCULAR HGB CONC 33.1 g/dL (33.0-37.0); MEAN PLATELET VOLUME 7.3 fl (7.2-11.7); MONO # 0.7 K/uL (0.0-0.8); MONO % 7.6 % (0.0-10.0); NEUT # 6.4 K/uL (1.8-7.0); NEUT % 70.8 % (50.0-75.0); RED CELL DISTRIBUTION WIDTH 13.1 % (11.5-14.5)
[2017-02-05 21:26] LABS: RBC URINE 8 /hpf (0-3); URINE BACTERIA RARE (<OCC); URINE BILIRUBIN NEGATIVE (NEGATIVE); URINE BLOOD SMALL (NEGATIVE); URINE COLOR YELLOW (YELLOW); URINE GLUCOSE (UA) NEG (Normal); URINE KETONE NEGATIVE (NEGATIVE); URINE LEUKOCYTE ESTERASE SMALL Leu/uL (Negative); URINE PROTEIN NEGATIVE (NEGATIVE); URINE UROBILINOGEN 0.2-1.0 mg/dL (0.2-1.0)
[2017-02-05 21:30] LABS: WBC URINE 7 /hpf (0-5)
[2017-02-05 21:32] LABS: ALB/GLOB RATIO 1.3 (1.0-2.1); ALCOHOL SERUM < 10 mg/dl (0-10); ALKALINE PHOSPHATASE 64 U/L (38-126); ALT/SGPT 43 U/L (9-52); AST/SGOT 34 U/L (14-36); BILIRUBIN,TOTAL 0.1 mg/dl (0.2-1.3); BLOOD UREA NITROGEN 14 mg/dl (7-17); CALCIUM 9.1 mg/dL (8.4-10.2); CARBON DIOXIDE 32 mmol/L (22-30); CHLORIDE 100 mmol/L (98-107); GFR AFRICAN-AMERICAN > 60; GLUCOSE,RANDOM 135 mg/dL (65-105); POTASSIUM 3.6 MMOL/L (3.6-5.0); SODIUM 140 mmol/l (132-148); TOTAL PROTEIN 7.9 G/DL (6.3-8.2)
--- NOTE | 2017-02-06 04:00 | ED PDOC ---
- Laboratory Results Result Diagrams: 02/05/17 21:10 02/05/17 21:10 - ECG O2 Sat by Pulse Oximetry: 98 (RA) - Progress ED Course And Treament: Case endorsed to [facility] underwriter from [facility] [place] [facility] [place] 1:30 Patient awake, resting comfortably 2:00 Patient awake, [facility] screener at bedside for eval 4:00 Patient does not meet requirements for commitment at this time. Patient is stable for discharge as per Dr. Irvin Disposition - Clinical Impression Clinical Impression: Schizoaffective disorder - POA Present On Arrival: None - Disposition Disposition: Routine/Home Disposition Time: 04:02 Condition: STABLE Instructions: Schizoaffective Disorder (ED) Print Language: [place]
[2017-02-06 04:24] VITALS: BP 129/80; PULSE 83; RESP 16; TEMP 98.1; O2SAT 99
== END 2017-02-06 04:20 | disposition home or self-care (01) ==
LOC: H.ER 19:57
DX: F20.9 Schizophrenia, unspecified (principal); F31.9 Bipolar disorder, unspecified; F41.9 Anxiety disorder, unspecified; J45.909 Unspecified asthma, uncomplicated
CPT/HCPCS: 80053; 81003; 81025; 85025; 87086; 87181; 99284; G0480